=== PATIENT | female | born 1950 | race Caucasian/White ===

== ENCOUNTER 2022-12-19 09:19 | Day surgery (SDC) | payer MEDICARE, OTHER ==
[~2022-12-19 09:19] MED LIST: Propofol 200 MG/20 ML SDV ONE
[2022-12-19] MEDS ORDERED: Lactated Ringers 1,000 ML IV SCH (09:30)
[2022-12-19] MEDS ORDERED: Sodium Chloride 0.9% 10 ML Syringe FLUSH PRN (09:30)
== END 2022-12-19 12:25 | disposition home or self-care (01) ==
LOC: LL.SDS 09:19
PROVIDERS: ATTEND Surgery
DX: Z12.11 Encounter for screening for malignant neoplasm of colon (principal); K63.89 Other specified diseases of intestine; K51.40 Inflammatory polyps of colon without complications; E78.2 Mixed hyperlipidemia; I10 Essential (primary) hypertension; E66.01 Morbid (severe) obesity due to excess calories; M16.12 Unilateral primary osteoarthritis, left hip; Z79.82 Long term (current) use of aspirin; Z79.899 Other long term (current) drug therapy; Z68.41 Body mass index [BMI] 40.0-44.9, adult
CPT/HCPCS: 00812; 88305; J2704; J7120